=== PATIENT | female | born 1955 | race Caucasian/White ===

== ENCOUNTER 2016-12-07 08:26 | Day surgery (SDC) | payer MEDICAID ==
[2016-12-03 10:56] VITALS: BMI 25.4
[~2016-12-07 08:26] MED LIST: Acetaminophen/Codeine elixir 120-12mg/5ml PO PRN; Dextrose 5%/0.45% NS 1,000 ML IV SCH; ceFAZolin IV 1 gm in Dextrose 50 ML IVPB ONE
[2016-12-07] MEDS ORDERED: Lactated Ringer's 1,000 ML IV ONE ×2 (10:00→11:20)
[2016-12-07] MEDS ORDERED: Propofol 10 mg/ml Inj (20 ML) ONE (10:04)
[2016-12-07] MEDS ORDERED: Succinylcholine Chloride 20 mg/ml Syr (5 ml) IV ONE (10:10)
--- NOTE | 2016-12-07 11:15 | OP ---
PROCEDURE DATE: 12/07/2016 PREOPERATIVE DIAGNOSIS: Chronic tonsillitis. POSTOPERATIVE DIAGNOSIS: Chronic tonsillitis. PROCEDURE: Tonsillectomy. SIGNIFICANT FINDINGS: Chronically infected tonsils. DESCRIPTION OF PROCEDURE: The patient was brought in room, placed in supine position. Anesthesia wa s initiated through an ET tube. The patient was draped in the usual manner. A mouth gag was placed in oral cavity, opened, suspended on the [place] universal grinder tool the usual manner. Right tonsil was grasped an d pulled medially. Incision was made in the anterior tonsillar pillar using plasma knife. Dissectio n was done between tonsil and tonsillar fossa using plasma knife until the tonsil was removed. Bleed ing was controlled using plasma knife. Next, the other tonsil was grasped, pulled medially. Incisio n was made in the anterior tonsillar pillar using plasma knife. Dissection was done between tonsil a nd tonsillar fossa using plasma knife until the tonsil was removed. Bleeding was controlled using pl asma knife. Both tonsillar beds were rubbed vigorously with plasma knife wand. No bleeding was note d. Mouth gag was let down for 30 seconds, put back up. No bleeding was noted. Mouth gag was taken down and removed. The patient was taken off anesthesia and taken to recovery room in stable manner. Bi Nj MD cc: [id number] TT: 12/07/2016 11:14:59 ar
[2016-12-07 11:25] VITALS: O2SAT 100
[2016-12-07] MEDS: HYDROmorphone 0.5 mg/0.5 ml ISec IVP PRN ×2 (11:30→11:52)
[2016-12-07 15:32] VITALS: BP 155/90; PULSE 76; RESP 18; TEMP 97.6
== END 2016-12-07 13:45 | disposition home or self-care (01) ==
LOC: C.SDS 08:26
PROVIDERS: ATTEND Otolaryngology
DX: J35.01 Chronic tonsillitis (principal); I10 Essential (primary) hypertension
CPT/HCPCS: 42826; 88304; J0360; J0690; J1170; J2001; J2405; J2704; J3010; J7120